=== PATIENT | male | born 1960 | race Caucasian/White ===

== ENCOUNTER 2017-06-29 15:52 | Inpatient (IN) | payer OTHER, MEDICARE ==
[~2017-06-29] VITALS: Ht 170.2 cm; Wt 60.5 kg
[2017-06-29] VITALS (8 sets, daily range): BP systolic 93–143; BP diastolic 58–90; PULSE 108–124; RESP 16–21; TEMP 98.3; O2SAT 92–97
[2017-06-29] MEDS ORDERED: IOHEXOL 350 MG/ML 10 ML VIAL (for RAD DIAG) IVCONTRAST ONE (15:53)
--- NOTE | 2017-06-29 16:27 | PD ---
HPI Chief Complaint: Respiratory Symptoms Time Seen by Provider: 16:23 Travel History International Travel<30 days: No Contact w/Intl Traveler<30days: No Traveled to known affect area: No History of Present Illness HPI 57-year-old male presents via EMS for evaluation of dyspnea, thoracic pain. He reports that symptoms initially started approximately 9 days ago. He reports that he was seen at the [facility], prescribed Augmentin, azithromycin, Medrol Dosepak. Symptoms improved but then returned yesterday which prompted evaluation. He reports cough is productive with clear and occasional yellow tinged sputum. He reports dyspnea, sharp pains on the left and right lateral rib cage which is worse with deep inspiration. He reports that he had a fever 5 days ago 100.4 but none since. Denies any nausea, vomiting, abdominal pain, lower extremity edema. He reports a remote history of lung cancer status post chemotherapy and radiation in 2009, left upper lobectomy 2 years ago. PFSH Past Medical History ?: Not Social History Alcohol Use: No Tobacco Use: Yes Allergies-Medications (Allergen,Severity, Reaction): Coded Allergies: No Known Allergies (Verified Allergy, Unknown, 06/29/17) Reported Meds & Prescriptions Reported Meds & Active Scripts Active Reported Ensure Plus (Nutritional Supplements) 0.05 Gram-1.5 Kcal/Ml Liq 1 Can PO TID Symbicort Inh (Budesonide/Formoterol Fumarate) 160-4.5 Mcg/Act Aero 2 Puff INH Q12HR Oxycodone (Oxycodone HCl) 10 Mg Tab 10 Mg PO Q6HR Oxycodone ER (Oxycodone HCl) 20 Mg Tab 20 Mg PO Q12HR Review of Systems Except as stated in HPI: all other systems reviewed are Neg Physical Exam Narrative GENERAL: Well-developed well-nourished male no acute distress SKIN: Warm and dry. HEAD: Atraumatic. Normocephalic. EYES: Pupils equal and round. No scleral icterus. No injection or drainage. ENT: No nasal bleeding or discharge. Mucous membranes pink and moist. NECK: Trachea midline. No JVD. CARDIOVASCULAR: Regular rate and rhythm. No murmur appreciated. RESPIRATORY: No accessory muscle use. Wheezing noted bilaterally. GASTROINTESTINAL: Abdomen soft, non-tender, nondistended. Hepatic and splenic margins not palpable. MUSCULOSKELETAL: No obvious deformities. No clubbing. No cyanosis. No edema. NEUROLOGICAL: Awake and alert. No obvious cranial nerve deficits. Motor grossly within normal limits. Normal speech. PSYCHIATRIC: Appropriate mood and affect; insight and judgment normal. Data Data Last Documented VS Vital Signs Date Time Temp Pulse Resp B/P (MAP) Pulse Ox O2 Delivery O2 Flow Rate FiO2 06/29/17 16:32 124 135/90 (105) 06/29/17 16:28 21 92 Nasal Cannula 2.00 06/29/17 16:07 98.3 Orders Orders Electrocardiogram (06/29/17 16:24) Basic Metabolic Panel (Bmp) (06/29/17 16:24) Ckmb (Isoenzyme) Profile (06/29/17 16:24) Complete Blood Count With Diff (06/29/17 16:24) Magnesium (Mg) (06/29/17 16:24) Prothrombin Time / Inr (Pt) (06/29/17 16:24) Act Partial Throm Time (Ptt) (06/29/17 16:24) Troponin I (06/29/17 16:24) Ecg Monitoring (06/29/17 16:24) Bilateral Bp Monitoring (06/29/17 16:24) Iv Access Insert/Monitor (06/29/17 16:24) Oximetry (06/29/17 16:24) Oxygen Administration (06/29/17 16:24) Sodium Chloride 0.9% Flush (Ns Flush) (06/29/17 16:30) Ct Pulmonary Angiogram (06/29/17 16:24) Chest, Pa & Lat (06/29/17 16:24) Albuterol-Ipratropium Neb (Duoneb Neb) (06/29/17 16:30) Sepsis Workup Initiated (06/29/17 ) Lactic Acid Sepsis Protocol (06/29/17 17:22) Blood Culture (06/29/17 17:22) Iohexol 350 Inj (Omnipaque 350 Inj) (06/29/17 15:53) Levofloxacin 750 Mg Premix Inj (Levaquin (06/29/17 19:15) Sodium Chlor 0.9% 1000 Ml Inj (Ns 1000 M (06/29/17 19:06) Admit Order (Ed Use Only) (06/29/17 19:15) Labs Laboratory Tests Test 06/29/17 17:10 06/29/17 17:39 White Blood Count 12.5 TH/MM3 Red Blood Count 4.65 MIL/MM3 Hemoglobin 14.6 GM/DL Hematocrit 43.9 % Mean Corpuscular Volume 94.4 FL Mean Corpuscular Hemoglobin 31.5 PG Mean Corpuscular Hemoglobin Concent 33.4 % Red Cell Distribution Width 13.7 % Platelet Count 203 TH/MM3 Mean Platelet Volume 8.9 FL Neutrophils (%) (Auto) 79.5 % Lymphocytes (%) (Auto) 7.1 % Monocytes (%) (Auto) 12.1 % Eosinophils (%) (Auto) 1.0 % Basophils (%) (Auto) 0.3 % Neutrophils # (Auto) 10.0 TH/MM3 Lymphocytes # (Auto) 0.9 TH/MM3 Monocytes # (Auto) 1.5 TH/MM3 Eosinophils # (Auto) 0.1 TH/MM3 Basophils # (Auto) 0.0 TH/MM3 CBC Comment DIFF FINAL Differential Comment Prothrombin Time 10.0 SEC Prothromb Time International Ratio 1.0 RATIO Activated Partial Thromboplast Time 28.2 SEC Blood Urea Nitrogen 14 MG/DL Creatinine 0.98 MG/DL Random Glucose 100 MG/DL Calcium Level 9.3 MG/DL Magnesium Level 2.2 MG/DL Sodium Level 134 MEQ/L Potassium Level 4.1 MEQ/L Chloride Level 94 MEQ/L Carbon Dioxide Level 34.1 MEQ/L Anion Gap 6 MEQ/L Estimat Glomerular Filtration Rate 79 ML/MIN Total Creatine Kinase 39 U/L Troponin I LESS THAN 0.02 NG/ML Lactic Acid Level 0.8 mmol/L MDM Medical Decision Making Medical Screen Exam Complete: Yes Emergency Medical Condition: Yes Medical Record Reviewed: Yes Differential Diagnosis Pneumonia, COPD, bronchiectasis, bronchitis, pulmonary embolism, pneumothorax Narrative Course The patient was placed on ECG monitoring pulse oximetry. 12-lead EKG was obtained. Lab work, chest x-ray, CT pulmonary antrum ordered. The patient will be given DuoNeb treatment. CTPA reveals CONCLUSION: 1. Soft tissue density just below the right hilum could be old versus residual disease/neoplastic process. 2. Small right pleural effusion. 3. Emphysema with scattered parenchymal densities in the lingula and right lower lung could be infectious or inflammatory. CBC reveals WBC count of 12.5 with 79.5% neutrophils. BMP is reassuring, cardiac enzymes are negative. Lactic acid within normal limits. The patient was tachycardic with a heart rate in the 110s to 120s. His oxygen saturation was in the low 90s on room air, improved to 97-98% on 2 L nasal cannula during examination. IV Levaquin initiated. The patient will be admitted for treatment of pneumonia essentially failed outpatient therapy as he recently completed a course of Augmentin and azithromycin. Diagnosis Primary Impression: Community acquired pneumonia Additional Impression: SIRS (systemic inflammatory response syndrome) Admitting Information Admitting Physician Requests: Admit Archie Kimble June 29, 2017 16:27
[2017-06-29] MEDS ORDERED: SODIUM CHLORIDE 0.9% FLUSH 10 ML FLUSH IVF PRN (16:30)
[2017-06-29] MEDS: RESP: ALBUTEROL 2.5 MG/IPRATROPIUM 0.5 MG NEB (SCH) INH ×2 (16:46→16:47)
[2017-06-29] MEDS ORDERED: OXYC-405 PO (17:09)
[2017-06-29] MEDS ORDERED: OXYC-395 PO (17:09)
[2017-06-29] MEDS ORDERED: SYMB160A INH (17:09)
[2017-06-29] MEDS ORDERED: ENSULIQ8 PO (17:09)
--- NOTE | 2017-06-29 17:15 | RADRPT ---
EXAM DATE/TIME: 06/29/2017 16:36 [facility] COMPARISON: No previous studies available for comparison. INDICATIONS : Short of breath. MEDICAL HISTORY : Carcinoma, lung. SURGICAL HISTORY : Lobectomy. Infusaport. ENCOUNTER: Initial ACUITY: 2 weeks PAIN SCORE: 0/10 LOCATION: Bilateral chest FINDINGS: PA and lateral views of the chest demonstrate a right [id number] in superior vena cava. Small righ t effusion. Heart size within normal limits. Right perihilar opacity. CONCLUSION: 1. History lung carcinoma with dense right perihilar opacity and right pleural effusion. No study for comparison. Qbfqre-v-Hlvb superior vena cava. Mild interstitial prominence left lung base. Rao Boyer MD on June 29, 2017 at 17:11 Board Certified Radiologist. This report was verified electronically.
[2017-06-29 17:36] LABS: BASOPHIL % 0.3 % (0.0-2.0); EOSINOPHIL # 0.1 TH/MM3 (0-0.4); HEMATOCRIT 43.9 % (39.0-51.0); HEMOGLOBIN 14.6 GM/DL (13.0-17.0); LYMPH % 7.1 % (9.0-44.0); LYMPHOCYTE # 0.9 TH/MM3 (1.0-4.8); MEAN CELL VOLUME 94.4 FL (80.0-100.0); MEAN CORPUSCULAR HEMOGLOBIN 31.5 PG (27.0-34.0); MEAN CORPUSCULAR HGB CONC 33.4 % (32.0-36.0); MEAN PLATELET VOLUME 8.9 FL (7.0-11.0); MONO % 12.1 % (0.0-8.0); MONOCYTE # 1.5 TH/MM3 (0-0.9); NEUT % 79.5 % (16.0-70.0); PLATELET COUNT 203 TH/MM3 (150-450); RED BLOOD COUNT 4.65 MIL/MM3 (4.50-5.90); RED CELL DISTRIBUTION WIDTH 13.7 % (11.6-17.2); WHITE BLOOD COUNT 12.5 TH/MM3 (4.0-11.0)
[2017-06-29 18:20] LABS: BICARBONATE 34.1 MEQ/L (21.0-32.0); BLOOD UREA NITROGEN 14 MG/DL (7-18); CALCIUM 9.3 MG/DL (8.5-10.1); CHLORIDE 94 MEQ/L (98-107); CREATININE 0.98 MG/DL (0.60-1.30); GLOMERULAR FILTRATION RATE 79 ML/MIN (>89); GLUCOSE,RANDOM 100 MG/DL (74-106); MAGNESIUM 2.2 MG/DL (1.5-2.5); SODIUM (NA) 134 MEQ/L (136-145)
[2017-06-29 18:25] LABS: TROPONIN I LESS THAN 0.02 NG/ML (0.02-0.05)
--- NOTE | 2017-06-29 18:59 | RADRPT ---
EXAM DATE/TIME: 06/29/2017 18:41 [facility] COMPARISON: CHEST PA & LAT, June 29, 2017, 16:36. INDICATIONS : Shortness of breath. IV CONTRAST: 72 cc Omnipaque 350 (iohexol) IV RADIATION DOSE: 6.82 CTDIvol (mGy) MEDICAL HISTORY : Bronchitis SURGICAL HISTORY : None. ENCOUNTER: Initial ACUITY: 1 day PAIN SCALE: 0/10 LOCATION: chest TECHNIQUE: Volumetric scanning of the chest was performed using a pulmonary embolism protocol MIP images were re constructed. Using automated exposure control and adjustment of the mA and/or kV according to patien t size, radiation dose was kept as low as reasonably achievable to obtain optimal diagnostic quality images. DICOM format image data is available electronically for review and comparison. Follow-up recommendations for detected pulmonary nodules are based at a minimum on nodule size and pa tient risk factors according to Fleischner Society Guidelines. FINDINGS: PULMONARY ARTERIES: No filling defects are seen in the pulmonary arteries through the segmental level. LUNGS: There is soft tissue density in the right lower hemithorax medially just below the right hilum could be residual disease. Minimal patchy densities in the lingula and right lower lobe. PLEURAE: Small right pleural effusion. There is no pleural thickening or pleural effusion on the left. MEDIASTINUM: There is good visualization of the great vessels of the middle mediastinum. No evidence of mediastin al or hilar adenopathy/mass. MUSCULOSKELETAL: Within normal limits for patient age. MISCELLANEOUS: The visualized upper abdominal organs demonstrate no acute abnormality. Right-sided portacatheter wit h tip in the SVC CONCLUSION: 1. Soft tissue density just below the right hilum could be old versus residual disease/neoplastic pro cess. 2. Small right pleural effusion. 3. Emphysema with scattered parenchymal densities in the lingula and right lower lung could be infect ious or inflammatory. Narendra Johnson MD on June 29, 2017 at 18:53 Board Certified Radiologist. This report was verified electronically.
[2017-06-29] MEDS ORDERED: SODIUM CHLOR 0.9% 1000 ML INJ 1,000 ML IV SCH (19:06)
[2017-06-29] MEDS ORDERED: LEVOFLOXACIN 750 MG PREMIX INJ 150 ML IV ONE (19:15)
[2017-06-29] MEDS ORDERED: LACTULOSE SYRUP 20 GM/30 ML CUP PO PRN (19:30)
[2017-06-29] MEDS ORDERED: MORPHINE SULFATE 2 MG/ML SYRINGE IV PUSH PRN (19:30)
[2017-06-29] MEDS ORDERED: SENNOSIDES 8.6 MG TAB PO PRN (19:30)
[2017-06-29] MEDS ORDERED: BISACODYL 10 MG SUPP RECTAL PRN (19:30)
[2017-06-29] MEDS ORDERED: MAGNESIUM HYDROXIDE SUSP 30 ML CUP PO PRN (19:30)
[2017-06-29] MEDS ORDERED: PROCHLORPERAZINE INJ 10 MG/2 ML VIAL IV PUSH PRN (19:30)
[2017-06-29] MEDS ORDERED: SODIUM CHLORIDE 0.9% FLUSH 10 ML FLUSH IV FLUSH PRN (19:30)
[2017-06-29] MEDS ORDERED: ACETAMINOPHEN/HYDROcodone 325 MG/5 MG TAB PO PRN (19:30)
[2017-06-29] MEDS ORDERED: ACETAMINOPHEN 325 MG TAB PO PRN (19:30)
[2017-06-29] MEDS ORDERED: RESP: ALBUTEROL 2.5 MG/IPRATROPIUM 0.5 MG NEB (PRN) NEB (19:30)
--- NOTE | 2017-06-29 19:34 | HHI.HP ---
[facility] Admission Diagnosis Community acquired pneumonia, SIRS Diagnoses: (1) Sepsis Diagnosis: Principal (2) PNA (pneumonia) Diagnosis: Principal (3) Chronic pain Diagnosis: Principal (4) Tobacco abuse Diagnosis: Principal Travel History International Travel<30 Days: No Contact w/Intl Traveler <30 Da: No Traveled to Known Affected Are: No History of Present Illness This is a 57-year-old male with a PMH of Lung CA s/p Chemo/Radiation w/ NICK Lobectomy, Chronic Pain and Tobacco Abuse who presented to the ER w/ complaints of SOB and right-sided chest wall pain. Follows at the [facility], was started on Augmentin, Z-Pack and Medrol Dosepak which he completed few days ago. States he was feeling much better until yesterday when he developed recurrent SOB. + productive cough w/ white colored sputum. Reports fever several days ago, but no fever since. Denies chest pain or sick contacts. On arrival, BP 143/87, HR 122, O2 sat 95% on 2L NC, Afebrile. WBC 12.5. Chemistry unremarkable except for GFR 79. Lactic Acid 0.8. Troponin negative. INR 1.0. CXR with dense right perihilar opacity and right pleural effusion no previous for comparison, Bolbmh-i-Bucf. CTA Pulm soft tissue density likely residual neoplastic disease , small right pleural effusion, emphysema with scattered densities in the lingula and right lower lung likely infectious. S/p Levaquin IV in ER. Review of Systems Except as stated in HPI: all other systems reviewed are Neg ROS: 14 point review of systems otherwise negative. Past Family Social History Past Medical History PMH: Lung CA s/p Chemo/Radiation w/ NICK Lobectomy, Chronic Pain and Tobacco Abuse Past Surgical History PAST SURGICAL HISTORY: NICK Lobectomy, Appendectomy Allergies: Coded Allergies: No Known Allergies (Verified Allergy, Unknown, 06/29/17) Family History PAST FAMILY HISTORY: Reviewed. No h/o DM or CAD Social History PAST SOCIAL HISTORY: Negative for alcohol or drugs. Smokes 1/2ppd. Physical Exam Vital Signs Vital Signs Date Time Temp Pulse Resp B/P (MAP) Pulse Ox O2 Delivery O2 Flow Rate FiO2 06/29/17 19:26 115 18 116/72 (87) 97 Nasal Cannula 2.00 06/29/17 16:32 124 135/90 (105) 06/29/17 16:28 123 21 134/78 (96) 92 Nasal Cannula 2.00 06/29/17 16:26 92 Nasal Cannula 2.00 06/29/17 16:26 Nasal Cannula 2.00 06/29/17 16:24 127 24 92 Nasal Cannula 2.00 06/29/17 16:07 98.3 122 20 143/87 (105) 95 Physical Exam PE: GENERAL: Middle-aged white male in no acute distress, appears younger than stated age. HEENT: PERRLA, EOMI. No scleral icterus or conjunctival pallor. No lid lag or facial droop. CARDIOVASCULAR: Regular rate and rhythm. No obvious murmurs to auscultation. No chest tenderness to palpation. Zezmao-b-Gwgt in place. RESPIRATORY: No obvious rhonchi or wheezing. Clear to auscultation. Breath sounds equal bilaterally. GASTROINTESTINAL: Abdomen soft, non-tender, nondistended. BS normal. MUSCULOSKELETAL: Extremities without clubbing, cyanosis, or edema. No obvious deformities. NEUROLOGICAL: Awake, alert and oriented x4. No focal neurologic deficits. Moving both upper and lower extremities spontaneously. Laboratory Laboratory Tests Test 06/29/17 17:10 06/29/17 17:39 White Blood Count 12.5 Red Blood Count 4.65 Hemoglobin 14.6 Hematocrit 43.9 Mean Corpuscular Volume 94.4 Mean Corpuscular Hemoglobin 31.5 Mean Corpuscular Hemoglobin Concent 33.4 Red Cell Distribution Width 13.7 Platelet Count 203 Mean Platelet Volume 8.9 Neutrophils (%) (Auto) 79.5 Lymphocytes (%) (Auto) 7.1 Monocytes (%) (Auto) 12.1 Eosinophils (%) (Auto) 1.0 Basophils (%) (Auto) 0.3 Neutrophils # (Auto) 10.0 Lymphocytes # (Auto) 0.9 Monocytes # (Auto) 1.5 Eosinophils # (Auto) 0.1 Basophils # (Auto) 0.0 CBC Comment DIFF FINAL Differential Comment Prothrombin Time 10.0 Prothromb Time International Ratio 1.0 Activated Partial Thromboplast Time 28.2 Blood Urea Nitrogen 14 Creatinine 0.98 Random Glucose 100 Calcium Level 9.3 Magnesium Level 2.2 Sodium Level 134 Potassium Level 4.1 Chloride Level 94 Carbon Dioxide Level 34.1 Anion Gap 6 Estimat Glomerular Filtration Rate 79 Total Creatine Kinase 39 Troponin I LESS THAN 0.02 Lactic Acid Level 0.8 Date/Time Source Procedure Growth Status 06/29/17 17:45 Blood Peripheral Aerobic Blood Culture Pending Received 06/29/17 17:45 Blood Peripheral Anaerobic Blood Culture Pending Received Result Diagram: 06/29/17170906/29/17 1710 Caprini VTE Risk Assessment Caprini VTE Risk Assessment: No/Low Risk (score <= 1) Caprini Risk Assessment Model Point Value = 1 Point Value = 2 Point Value = 3 Point Value = 5 Age 41-60 Minor surgery BMI > 25 kg/m2 Swollen legs Varicose veins or History of unexplained or recurrent spontaneous Oral contraceptives or hormone replacement Sepsis (< 1 month) Serious lung disease, including pneumonia (< 1 month) Abnormal pulmonary function Acute myocardial infarction Congestive heart failure (< 1 month) History of inflammatory bowel disease Medical patient at bed rest Age 61-74 Arthroscopic surgery Major open surgery (> 45 min) Laparoscopic surgery (> 45 min) Malignancy Confined to bed (> 72 hours) Immobilizing plaster cast Central venous access Age >= 75 History of VTE Family history of VTE Factor V Leiden Prothrombin [id number] Lupus anticoagulant Anticardiolipin antibodies Elevated serum homocysteine Heparin-induced thrombocytopenia Other congenital or acquired thrombophilia Stroke (< 1 month) Elective arthroplasty Hip, pelvis, or leg fracture Acute spinal cord injury (< 1 month) Prophylaxis Regimen Total Risk Factor Score Risk Level Prophylaxis Regimen 0-1 Low Early ambulation 2 Moderate Order ONE of the following: *Sequential Compression Device (SCD) *Heparin 5000 units SQ BID 3-4 Higher Order ONE of the following medications: *Heparin 5000 units SQ TID *Enoxaparin/Lovenox 40 mg SQ daily (WT < 150 kg, CrCl > 30 mL/min) *Enoxaparin/Lovenox 30 mg SQ daily (WT < 150 kg, CrCl > 10-29 mL/min) *Enoxaparin/Lovenox 30 mg SQ BID (WT < 150 kg, CrCl > 30 mL/min) AND/OR *Sequential Compression Device (SCD) 5 or more Highest Order ONE of the following medications: *Heparin 5000 units SQ TID (Preferred with Epidurals) *Enoxaparin/Lovenox 40 mg SQ daily (WT < 150 kg, CrCl > 30 mL/min) *Enoxaparin/Lovenox 30 mg SQ daily (WT < 150 kg, CrCl > 10-29 mL/min) *Enoxaparin/Lovenox 30 mg SQ BID (WT < 150 kg, CrCl > 30 mL/min) AND *Sequential Compression Device (SCD) Assessment and Plan Problem List: (1) Sepsis ICD Code: A41.9 - Sepsis, unspecified organism (2) PNA (pneumonia) ICD Code: J18.9 - Pneumonia, unspecified organism (3) Tobacco abuse ICD Code: Z72.0 - Tobacco use (4) Chronic pain ICD Code: G89.29 - Other chronic pain Assessment and Plan A/P: 1. Sepsis: HR 123, RR >20, WBC 12.5, Source-PNA. Follow up blood cultures, continue IV Abx, IVF, repeat labs in am. 2. PNA: CTA Pulm w/ residual neoplastic process, scattered parenchymal disease lingula/RLLL likely infectious. +Failed outpatient tx on Augmentin and Z-Handy. Continue w/ IV Abx, DuoNeb prn, resume home medications. Mucinex. Check Sputum Cultures. 3. Chronic Pain: h/o Lung CA s/p Chemo/Radiation/Lobectomy on Oxycodone for chronic pain, will resume home pain regimen. 4. Tobacco Abuse: NicoDerm prn if needed. 5. DVT Prophylaxis: Heparin sq 6. Social work for d/c planning as needed 7. Case discussed w/ ER physician at length, labs/records/imaging reviewed by me. Physician Certification 2 Midnight Certification Type: Admission for Inpatient Services Order for Inpatient Services The services are ordered in accordance with Medicare regulations or non- Medicare payer requirements, as applicable. In the case of services not specified as inpatient-only, they are appropriately provided as inpatient services in accordance with the 2-midnight benchmark. Estimated LOS (days): 2 days is the estimated time the patient will need to remain in the hospital, assuming treatment plan goals are met and no additional complications. Post-Hospital Plan: Not yet determined Janett Barcenas MD June 29, 2017 19:34
[2017-06-29] MEDS: guaiFENesin E.R. 600 MG TAB PO SCH (20:59)
[2017-06-29] MEDS: DOCUSATE SODIUM 50 MG/SENNA 8.6 MG TAB PO SCH (20:59)
[2017-06-29] MEDS: SODIUM CHLORIDE 0.9% FLUSH 10 ML FLUSH IV FLUSH SCH (21:00)
[2017-06-29] MEDS: BUDESONIDE-FORMOTEROL 160/4.5 MCG INHALER INH SCH (21:12)
[2017-06-29] MEDS: oxyCODONE HCL 20 MG CONTROLLED RELEASE TAB PO SCH (21:12)
[2017-06-29] MEDS: SODIUM CHLOR 0.9% 1000 ML INJ 1,000 ML IV SCH (22:45)
[2017-06-30] VITALS: PULSE 111
[2017-06-30 04:00] VITALS: PULSE 105
[2017-06-30 04:05] VITALS: BP 86/58
[2017-06-30 05:02] VITALS: BP 101/62; PULSE 106; RESP 16; TEMP 98.3; O2SAT 95
[2017-06-30] MEDS ORDERED: SODIUM CHLORID 0.9% 500 ML INJ 500 ML IV ONE (05:15)
[2017-06-30 05:39] LABS: AUTOMATED NEUTROPHIL # 6.2 TH/MM3 (1.8-7.7); BASOPHIL # 0.1 TH/MM3 (0-0.2); BASOPHIL % 0.8 % (0.0-2.0); EOSINOPHIL # 0.1 TH/MM3 (0-0.4); EOSINOPHIL % 1.6 % (0.0-4.0); HEMOGLOBIN 13.2 GM/DL (13.0-17.0); LYMPH % 9.1 % (9.0-44.0); LYMPHOCYTE # 0.8 TH/MM3 (1.0-4.8); MEAN CELL VOLUME 93.1 FL (80.0-100.0); MEAN CORPUSCULAR HEMOGLOBIN 31.6 PG (27.0-34.0); MEAN PLATELET VOLUME 8.7 FL (7.0-11.0); MONO % 15.9 % (0.0-8.0); MONOCYTE # 1.4 TH/MM3 (0-0.9); NEUT % 72.6 % (16.0-70.0); PLATELET COUNT 176 TH/MM3 (150-450); RED BLOOD COUNT 4.18 MIL/MM3 (4.50-5.90); WHITE BLOOD COUNT 8.6 TH/MM3 (4.0-11.0)
[2017-06-30] MEDS: SODIUM CHLOR 0.9% 1000 ML INJ 1,000 ML IV SCH (06:06)
[2017-06-30 06:19] LABS: ALBUMIN 2.8 GM/DL (3.4-5.0); ALKALINE PHOSPHATASE 56 U/L (45-117); ALT (GPT) 17 U/L (12-78); AST (GOT) 18 U/L (15-37); BLOOD UREA NITROGEN 10 MG/DL (7-18); CALCIUM 8.3 MG/DL (8.5-10.1); CHLORIDE 101 MEQ/L (98-107); CREATININE 0.84 MG/DL (0.60-1.30); GLOMERULAR FILTRATION RATE 95 ML/MIN (>89); GLUCOSE,RANDOM 88 MG/DL (74-106); SODIUM (NA) 139 MEQ/L (136-145); TOTAL BILIRUBIN ADULT 0.5 MG/DL (0.2-1.0); TOTAL PROTEIN 6.5 GM/DL (6.4-8.2)
[2017-06-30 08:04] VITALS: BP 106/68; PULSE 106; RESP 17; TEMP 98.2; O2SAT 95
[2017-06-30] MEDS: oxyCODONE HCL 20 MG CONTROLLED RELEASE TAB PO SCH (08:41)
[2017-06-30] MEDS: DOCUSATE SODIUM 50 MG/SENNA 8.6 MG TAB PO SCH (08:41)
[2017-06-30] MEDS: guaiFENesin E.R. 600 MG TAB PO SCH (08:41)
[2017-06-30] MEDS: SODIUM CHLORIDE 0.9% FLUSH 10 ML FLUSH IV FLUSH SCH (08:43)
[2017-06-30] MEDS: BUDESONIDE-FORMOTEROL 160/4.5 MCG INHALER INH SCH (08:44)
[2017-06-30] MEDS ORDERED: HEPARIN SODIUM - SQ 10,000 UNITS/ML VIAL SQ SCH (09:00)
[2017-06-30] MEDS ORDERED: PRED20 PO (10:10)
[2017-06-30] MEDS ORDERED: LEVA750T9 PO (10:10)
--- NOTE | 2017-06-30 10:11 | HHI.DCPOC ---
Discharge Care Plan Diagnosis: (1) Lung cancer (2) Community acquired pneumonia (3) Tobacco abuse (4) Chronic pain Goals to Promote Your Health * To prevent worsening of your condition and complications * To maintain your health at the optimal level Directions to Meet Your Goals Take your medications as prescribed Follow your dietary instruction Follow activity as directed Keep your appointments as scheduled Take your immunizations and boosters as scheduled If your symptoms worsen call your PCP, if no PCP go to Urgent Care Center or Emergency Room Smoking is Dangerous to Your Health. Avoid second hand smoke Call the 24-hour hour crisis hotline for domestic abuse at Alex Sosa MD June 30, 2017 10:11
--- NOTE | 2017-06-30 10:16 | HHI.PR ---
Subjective Remarks Patient states he is feeling great. He is requesting to go home. Leukocytosis resolved, afebrile overnight. He is on room air. Objective Vitals Vital Signs Date Time Temp Pulse Resp B/P (MAP) Pulse Ox O2 Delivery O2 Flow Rate FiO2 06/30/17 08:04 98.2 106 17 106/68 (81) 95 06/30/17 05:02 98.3 106 16 101/62 (75) 95 06/30/17 04:05 86/58 (67) 06/30/17 04:00 105 06/30/17 00:00 111 06/29/17 23:53 93/58 (70) 100/58 (72) 06/29/17 22:30 108 06/29/17 21:50 98.3 108 16 94/59 (71) 94 06/29/17 21:46 06/29/17 21:00 112 16 135/65 (88) 95 Nasal Cannula 2.00 06/29/17 19:26 115 18 116/72 (87) 97 Nasal Cannula 2.00 06/29/17 16:32 124 135/90 (105) 06/29/17 16:28 123 21 134/78 (96) 92 Nasal Cannula 2.00 06/29/17 16:26 92 Nasal Cannula 2.00 06/29/17 16:26 Nasal Cannula 2.00 06/29/17 16:24 127 24 92 Nasal Cannula 2.00 06/29/17 16:07 98.3 122 20 143/87 (105) 95 I/O 06/29/17 06/29/17 06/29/17 06/30/17 06/30/17 06/30/17 07:00 15:00 23:00 07:00 15:00 23:00 Intake Total 1150 ml 150 ml Output Total 2 ml Balance 1150 ml 148 ml Intake Oral 150 ml IV Total 1150 ml Output Urine Total 2 ml # Bowel Movements 0 Result Diagram: 06/30/1751206/30/17512 Objective Remarks GENERAL: Appear older than stated age CARDIOVASCULAR: Normal rate and regular rhythm without murmurs, gallops, or rubs. RESPIRATORY: Good respiratory efforts. Diminished breath sounds in the right base otherwise clear to auscultation. GASTROINTESTINAL: Abdomen soft, non-tender, non-distended. Normal active bowel sounds MUSCULOSKELETAL: Extremities without cyanosis, or edema. NEURO: Alert & Oriented x4 to person, place, time, situation. Moves all ext x4 PSYCH: Appropriate mood and affect. A/P Problem List: (1) Sepsis ICD Code: A41.9 - Sepsis, unspecified organism (2) PNA (pneumonia) ICD Code: J18.9 - Pneumonia, unspecified organism (3) Tobacco abuse ICD Code: Z72.0 - Tobacco use (4) Chronic pain ICD Code: G89.29 - Other chronic pain Assessment and Plan 57-year-old male with history of lung cancer status post radiation, chemotherapy , and lobectomy admitted with pneumonia, failed Augmentin and Z-Handy outpatient. The patient was admitted and treated for community-acquired pneumonia. He improved significantly relatively quickly. He requested to go home. He has good outpatient follow-up. He does have COPD. The patient is discharged on Levaquin and a short course of steroid. He is to follow-up outpatient with his primary care physician. He states he has regular follow-up with his oncologist and there has been no progression of his disease. He was extensively counseled regarding tobacco cessation. Discharge Planning Discharge home in good condition Activity: Regular as tolerated Diet: Regular Meds: Per med rec Follow-up with: PCP and oncologist. Alex Sosa MD June 30, 2017 10:16
[2017-06-30] MEDS ORDERED: LEVOFLOXACIN 750 MG PREMIX INJ 150 ML IV SCH (21:00)
--- NOTE | 2017-07-01 08:40 | EKG ---
Date Performed: 06/29/2017 Time Performed: 16:27:07 PTAGE: 57 years EKG: SINUS TACHYCARDIA WITH SHORT IA INTERVAL LOW QRS VOLTAGE IN EXTREMITY LEADS ABNORMAL RHYTHM ECG INTERPRETATION BASED ON A DEFAULT AGE OF 40 YEARS NO PREVIOUS TRACING DOCTOR: Sal Lou Interpretating Date/Time 07/01/2017 08:38:25
== END 2017-06-30 12:38 | disposition home health service (06) | DRG 871 ==
LOC: NEPE 15:52 → NEDA 19:17 → N04A 21:58
PROVIDERS: ADMIT Family Medicine; ATTEND Family Medicine
DX: A41.9 Sepsis, unspecified organism (principal); J18.9 Pneumonia, unspecified organism; G89.29 Other chronic pain; Z85.118 Personal history of other malignant neoplasm of bronchus and lung; Z72.0 Tobacco use; Z92.21 Personal history of antineoplastic chemotherapy; Z92.3 Personal history of irradiation
CPT/HCPCS: 71046; 71275; 80048; 80053; 82550; 83605; 83735; 84484; 85025; 85610; 85730; 87040; 93005; 94664; J1644; J1956; J7030; J7040; Q9967